=== PATIENT | female | born 1950 | race Caucasian/White ===

== ENCOUNTER 2016-10-15 11:27 | Inpatient (IN) | payer OTHER ==
[~2016-10-15] VITALS: Ht 165.1 cm; Wt 86.2 kg
[~2016-10-15 11:27] MED LIST: BACTO TP; BEN50 PO; EMTR1TAB12 PO; METF500T2 PO; SULF1TAB12 PO; [UNRECOGNIZED DRUG - CODE] PO; [UNRECOGNIZED DRUG - CODE] TP
[2016-10-15 11:35] VITALS: BP 152/87
[2016-10-15 12:03] LABS: BASOPHILS # (AUTO) 0.2 K/uL (0.00-0.22); BASOPHILS % (AUTO) 4.6 % (0.0-2.0); EOSINOPHILS # (AUTO) 0.1 K/uL (0-0.4); EOSINOPHILS % (AUTO) 2.9 % (0.0-4.0); HEMATOCRIT 40.4 % (36-48); HEMOGLOBIN 13.6 g/dL (12.0-16.0); LYMPHOCYTES # (AUTO) 2.2 K/uL (2.5-16.5); MEAN CORPUSCULAR HEMOGLOBIN 32 pg (27-31); MEAN CORPUSCULAR HGB CONC 34 g/dL (33-37); MEAN CORPUSCULAR VOLUME 93 fL (80-94); MONOCYTES # (AUTO) 0.2 K/uL (0.8-1.0); MONOCYTES % (AUTO) 4.9 % (1.7-9.3); NEUTROPHILS # (AUTO) 1.7 K/uL (1.8-7.7); NEUTROPHILS % (AUTO) 38.6 % (42.2-75.2); PLATELET COUNT (AUTO) 223 K/uL (140-450); RED BLOOD CELL COUNT(AUTO) 4.33 MIL/uL (4.20-5.40); RED CELL DISTRIBUTION WIDTH 13.3 % (11.6-13.7); WHITE BLOOD COUNT (AUTO) 4.4 K/uL (4.8-10.8)
[2016-10-15 12:17] LABS: ALBUMIN 3.6 g/dL (3.4-5.0); ANION GAP 10.5 (8-16); CALCIUM 8.9 mg/dL (8.5-10.1); CARBON DIOXIDE 29.8 mmol/L (21-32); CREATININE 0.8 mg/dL (0.6-1.3); POTASSIUM 5.3 mmol/L (3.5-5.1); TOTAL BILIRUBIN 0.6 mg/dL (0.0-1.0); TOTAL PROTEIN, SERUM 7.8 g/dL (6.4-8.2)
[2016-10-15 12:19] LABS: PARTIAL THROMBOPLASTIN TIME 26.7 secs (22-35.6); PROTHROMBIN TIME 9.7 secs (10.8-13.4)
--- NOTE | 2016-10-15 12:54 | NUR ---
Patient ambulated to bed 3. RN evaluating patient at bedside.
--- NOTE | 2016-10-15 12:55 | NUR ---
66/F PRESENT TO ER c/O CHEST PAIN x YESTERDAY 1929. DENIES N/V/D; SKIN IS PINK/WARM/DRY; AAOX4 WITH EVEN AND STEADY GAIT; LUNGS CLEAR BL; HR EVEN AND REGULAR; PT DENIES ANY FEVER, SOB, OR COUGH AT THIS TIME; PATIENT STATES PAIN OF 4/10 AT THIS TIME; VSS; PATIENT POSITIONED FOR COMFORT; HOB ELEVATED; BEDRAILS UP X2; BED DOWN. ER MD MADE AWARE OF PT STATUS.
--- NOTE | 2016-10-15 13:35 | NUR ---
Dr. Kam evaluating patient at bedside.
[2016-10-15] MEDS ORDERED: MORPHINE SULFATE 4 MG/ML SYR IVP ONE (14:00)
[2016-10-15] MEDS ORDERED: EMTR1TAB12 PO (14:11)
[2016-10-15] MEDS ORDERED: CILO100T PO (14:12)
[2016-10-15] MEDS ORDERED: CLOB0.0525 TP (14:13)
[2016-10-15] MEDS ORDERED: MOMETASONE TOP (14:14)
[2016-10-15] MEDS ORDERED: MOME0.051 NS (14:14)
[2016-10-15] MEDS ORDERED: ACETAMINOPHEN 325 MG TAB PO PRN (14:15)
[2016-10-15] MEDS ORDERED: [UNRECOGNIZED DRUG - CODE] PO (14:15)
[2016-10-15] MEDS ORDERED: ONDANSETRON 4 MG/2 ML VIAL IVP PRN (14:15)
[2016-10-15] MEDS ORDERED: HYDROcodone/APAP 5/325 MG 1 TAB TAB PO PRN (14:15)
[2016-10-15] MEDS ORDERED: VIT B6 PO (14:16)
[2016-10-15] MEDS ORDERED: METF750T PO (14:17)
[2016-10-15] MEDS ORDERED: ASPI81EC97 PO (14:17)
--- NOTE | 2016-10-15 14:20 | NUR ---
DR MORALES AWARE OF PT REFUSED MORPHINE, NOTIFIED OF POTASIUM AND BS
--- NOTE | 2016-10-15 14:27 | NUR ---
Patient will be admitted to care of DR GRAHAM. Admited to TELE. Will go to room 102A. Belongings list completed. Report to VIRY OCONNOR.
[2016-10-15 14:50] VITALS: BP 124/68
--- NOTE | 2016-10-15 14:50 | NUR ---
PATIENT ADMITTED FROM ER WITH DX OF CHEST PAIN. PATIENT AWAKE, ALERT, ORIENTED AND AMBULATORY. PATIENT DENIES PAIN AT THIS TIME. NO S/S OF DISTRESS NOTED. PATIENT BREATHING ON ROOM AIR. IV LINE NOTED TO THE RIGHT HAND. PATIENT PLACED ON TELE MONITORING. BED LOWERED WITH CALL LIGHT WITHIN REACH. WILL CONTINUE TO MONITOR
[2016-10-15 15:41] LABS: FREE T4 (FREE THYROXINE) 1.02 ng/dL (0.76-1.46); MAGNESIUM 1.9 mg/dL (1.8-2.4); PHOSPHORUS 3.9 mg/dL (2.5-4.9); THYROID STIMULATING HORMONE 1.29 uIU/mL (0.34-3.76)
[2016-10-15] MEDS ORDERED: MORPHINE SULFATE 2 MG/ML SYR IVP PRN (16:00)
--- NOTE | 2016-10-15 16:35 | NUR ---
PATIENT ASLEEP IN BED. NO S/S OF DISTRESS NOTED
[2016-10-15] MEDS: NACL 0.9% 1,000 ML IV SCH (17:28)
--- NOTE | 2016-10-15 19:15 | NUR ---
RECEIVED REPORT FROM VIRY LINRAES AT BEDSIDE. INITIAL ASSESSMENT COMPLETED. PT AAOX4. PT AMBULATES. PT SITTING ON CHAIR. PT DENIES PAIN OR DISCOMFORT. PT'S SKIN IS INTACT. PT HAS IV ON RIGHT HAND 22 G; ASYMPTOMATIC, PATENT AND INTACT INFUSING FLUIDS WELL. ORIENTED PT TO ROOM AND SURROUNDINGS AND USE OF CALL LIGHT. EXPLAINED PLAN OF CARE AND SHE VERBALIZES UNDERSTANDING. CALL LIGHT WITHIN REACH.
--- NOTE | 2016-10-15 19:33 | NUR ---
PATIENT REPORT GIVEN AT BEDSIDE. PATIENT ENDORSED IN STABLE CONDITION
[2016-10-15 20:00] VITALS: BP 101/56
[2016-10-15] MEDS ORDERED: CLOBETASOL PROPIONATE 0.05% TP SCH (20:35)
[2016-10-15] MEDS ORDERED: DEXTROSE 50% 50 ML SYR IVP PRN (20:35)
[2016-10-15] MEDS: BLOOD GLUCOSE MONITORING 1 DEV DEV FS SCH (21:00)
[2016-10-15] MEDS: KALETRA PO SCH (21:00)
[2016-10-15] MEDS ORDERED: LOPINAVIR PO SCH (21:00)
[2016-10-15] MEDS: METOPROLOL 25 MG TAB PO SCH (21:00)
[2016-10-15] MEDS ORDERED: SIMVASTATIN 10 MG TAB PO SCH (21:00)
[2016-10-15] MEDS ORDERED: diphenhydrAMINE 50 MG CAP PO SCH (21:00)
[2016-10-15] MEDS ORDERED: RITONAVIR PO SCH (21:00)
[2016-10-15] MEDS: CILOSTAZOL 100 MG TAB PO SCH (21:01)
--- NOTE | 2016-10-15 21:17 | NUR ---
PT TOLERATED 2100 MEDS WELL. MEDICATIONS GIVEN BY STUDENTS ACCOMPANIED BY THE INSTRUCTOR. LOPRESSOR NOT GIVEN DUE TO LOW BLOOD PRESSURE.
--- NOTE | 2016-10-15 21:20 | NUR ---
URINE COLLECTED AND SENT TO LAB.
[2016-10-15 21:46] LABS: BILIRUBIN,URINE NEGATIVE (NEGATIVE); BLOOD, URINE NEGATIVE (NEGATIVE); COLOR,URINE YELLOW (YELLOW); LEUKOCYTE ESTERASE ,URINE TRACE (NEGATIVE); NITRITE, URINE NEGATIVE (NEGATIVE); PROTEIN,URINE NEGATIVE (NEGATIVE); UGLUCOSE NEGATIVE (NEGATIVE); UROBILINOGEN,URINE 0.2 EU/dL (0.2 - 1)
[2016-10-15 21:53] LABS: APPEARANCE,URINE HAZY (CLEAR)
[2016-10-15 21:54] LABS: AMPHETAMINE, URINE NEG. ng/ml (NEG <=1000); BARBITURATE, URINE NEG. ng/ml (NEG <=200); BENZODIAZEPINE, URINE NEG. ng/mL (NEG <=200); CANNABINOID, URINE NEG. ng/mL (NEG <=50); COCAINE, URINE NEG. ng/mL (NEG <=300); OPIATE, URINE NEG. ng/mL (NEG <=2000); PHENCYCLIDINE SCREEN,URINE NEG. ng/mL (NEG <=25)
--- NOTE | 2016-10-15 22:10 | NUR ---
PT HAS BLOOD SUGAR MONITORING; HOWEVER THERE IS NO BLOOD GLUCOSE SLIDING SCALE. DR. DANIELS AWARE, HE STATED THAT HE WOULD PUT ORDERS, WILL FOLLOW UP.
--- NOTE | 2016-10-15 22:30 | NUR ---
PT STATED THAT SHE IS HUNGRY. PT REQUESTING SNACKS. SNACKS GIVEN. ALL NEEDS MET AT THIS TIME. CALL LIGHT WITHIN REACH.
[2016-10-15] MEDS: INSULIN LISPRO SLIDING SCALE 100 UNITS/ML VIAL SUBQ PRN (23:08)
[2016-10-16] VITALS: BP 112/63
--- NOTE | 2016-10-16 00:25 | NUR ---
PT AMBULATED TO THE RESTROOM. PT BACK IN BED NOW. WILL CONTINUE TO MONITOR PT.
--- NOTE | 2016-10-16 02:48 | NUR ---
PT REQUESTED TO HAVE IV DISCONNECTED TO AMBULATE TO THE RESTROOM. PT ALSO REQUESTED TO HAVE A CLEAN GOWN. PT RESTING IN BED; IV RECONNECTED. WILL CONTINUE TO MONITOR PT.
[2016-10-16 04:00] VITALS: BP 123/65
--- NOTE | 2016-10-16 04:05 | NUR ---
PT STATED THAT SHE FELT HOT. I TOOK HER TEMPERATURE AND IT WAS 98.3 REMOVED BLANKETS AND PT STATES THAT SHE FEELS BETTER NOW. WILL CONTINUE TO MONITOR PT.
--- NOTE | 2016-10-16 05:50 | NUR ---
DRY CLIPPER TENDER AT BEDSIDE. CALL LIGHT WITHIN REACH.
[2016-10-16 06:43] LABS: HEMATOCRIT 38.4 % (36-48); HEMOGLOBIN 13.1 g/dL (12.0-16.0); MEAN CORPUSCULAR HEMOGLOBIN 32 pg (27-31); MEAN CORPUSCULAR HGB CONC 34 g/dL (33-37); MEAN CORPUSCULAR VOLUME 95 fL (80-94); PLATELET COUNT (AUTO) 212 K/uL (140-450); RED BLOOD CELL COUNT(AUTO) 4.06 MIL/uL (4.20-5.40); RED CELL DISTRIBUTION WIDTH 13.5 % (11.6-13.7)
--- NOTE | 2016-10-16 07:10 | NUR ---
PATIENT REPORT RECEIVED AT BEDSIDE. PATIENT ASLEEP BUT AROUSABLE. NO S/S OF DISTRESS NOTED. PT ON TELE MONITORING. BED LOWERED WITH CALL LIGHT WITHIN REACH. WILL CONTINUE TO MONITOR
--- NOTE | 2016-10-16 07:10 | NUR ---
ENDORSED PLAN OF CARE TO DAY SHIFT NURSE. PT IN STABLE CONDITION.
[2016-10-16] MEDS: BLOOD GLUCOSE MONITORING 1 DEV DEV FS SCH ×2 (07:30→11:30)
--- NOTE | 2016-10-16 07:40 | NUR ---
PATIENT HAS BEEN SCREENED AND CATEGORIZED MODERATE NUTRITION RISK. PATIENT WILL BE SEEN WITHIN 3-5 DAYS OF ADMISSION. 10/18/16-10/20/[address]
[2016-10-16 07:45] LABS: ANION GAP 11.4 (8-16); CALCIUM 8.4 mg/dL (8.5-10.1); CARBON DIOXIDE 28.2 mmol/L (21-32); CREATININE 0.7 mg/dL (0.6-1.3); POTASSIUM 4.6 mmol/L (3.5-5.1)
[2016-10-16 07:56] LABS: CHOL/HDL RATIO 3.4 (1-4.5); MAGNESIUM 1.8 mg/dL (1.8-2.4); PHOSPHORUS 4.2 mg/dL (2.5-4.9)
[2016-10-16 08:00] VITALS: BP 116/62
[2016-10-16 08:45] LABS: BAND % (MANUAL) 60 % (0-8); LYMPHOCYTES % (MANUAL) 7 % (20-46); NEUTROPHILS % (MANUAL) 31 (43-65)
[2016-10-16 08:46] LABS: EOSINOPHILS % (MANUAL) 2 % (0-4)
[2016-10-16] MEDS ORDERED: PYRIDOXINE 25 MG PO SCH (09:00)
[2016-10-16] MEDS ORDERED: LISINOPRIL 5 MG TAB PO SCH (09:00)
[2016-10-16] MEDS ORDERED: TRUVADA PO SCH (09:00)
[2016-10-16] MEDS ORDERED: PYRIDOXINE 50 MG TAB PO SCH (09:00)
[2016-10-16] MEDS ORDERED: ECOTRIN 81 MG TABEC PO SCH (09:00)
[2016-10-16] MEDS ORDERED: EMTRICITABINE/TENOFOVIR 200-300MG 1 TAB PO SCH (09:00)
[2016-10-16] MEDS: CILOSTAZOL 100 MG TAB PO SCH (09:49)
[2016-10-16] MEDS: KALETRA PO SCH (09:50)
[2016-10-16] MEDS: METOPROLOL 25 MG TAB PO SCH (09:51)
[2016-10-16] MEDS: NACL 0.9% 1,000 ML IV SCH (10:15)
[2016-10-16 12:00] VITALS: BP 98/50
[2016-10-16] MEDS: INSULIN LISPRO SLIDING SCALE 100 UNITS/ML VIAL SUBQ PRN (12:46)
--- NOTE | 2016-10-16 13:42 | NUR ---
PATIENT WANTED TO SMOKE OUTSIDE BUT WAS NOT CLEARED BY DR CHIU. PATIENT OPTED TO SIGN AMA. IV LINE DISCONTINUED
--- NOTE | 2016-10-16 14:42 | NUR ---
P.T. NOTES RECEIVED P.T. EVAL ORDER; Pt DECLINED TO PARTICIPATE W/P.T., STATES SHE FEELS TIRED, EXPLAINED BENEFITS OF THERAPY, Pt STILL DECLINED, CALL LIGHT, PHONE, TABLE IN REACH; APPRECIATIVE; FOLLOW UP TOMORROW; STATES SHE LIVES AT HOME ALONE, HAS 3 CAREGIVERS, AMBULATORY W/ FWW. PUMA
--- NOTE | 2016-10-16 16:17 | NUR ---
CALLED ANDRESSA, PATIENT'S AUTOMATION QA ANALYST AND INFORMED HIM THAT PATIENT FORGOT HER HOME MEDICATIONS IN THE HOSPITAL. ANDRESSA TO RIM TECHNICIAN PATIENT'S MEDICATIONS TODAY
== END 2016-10-16 13:42 | disposition left against medical advice (07) | DRG 205 ==
LOC: MED 11:27 → MTU 14:15
PROVIDERS: ADMIT Family Medicine; ATTEND Family Medicine
DX: M94.0 Chondrocostal junction syndrome [Tietze] (principal); N17.0 Acute kidney failure with tubular necrosis; D68.59 Other primary thrombophilia; N39.0 Urinary tract infection, site not specified; E87.5 Hyperkalemia; F17.200 Nicotine dependence, unspecified, uncomplicated; I87.2 Venous insufficiency (chronic) (peripheral); E11.649 Type 2 diabetes mellitus with hypoglycemia without coma; Z96.653 Presence of artificial knee joint, bilateral; E11.51 Type 2 diabetes mellitus with diabetic peripheral angiopathy without gangrene; Z60.2 Problems related to living alone; L53.9 Erythematous condition, unspecified; I70.209 Unspecified atherosclerosis of native arteries of extremities, unspecified extremity; I25.10 Atherosclerotic heart disease of native coronary artery without angina pectoris; Z86.718 Personal history of other venous thrombosis and embolism; Z79.899 Other long term (current) drug therapy; Z88.1 Allergy status to other antibiotic agents; Z88.8 Allergy status to other drugs, medicaments and biological substances; Z86.73 Personal history of transient ischemic attack (TIA), and cerebral infarction without residual deficits; I25.2 Old myocardial infarction; Z80.1 Family history of malignant neoplasm of trachea, bronchus and lung; Z80.49 Family history of malignant neoplasm of other genital organs; Z89.421 Acquired absence of other right toe(s); Z90.710 Acquired absence of both cervix and uterus; Z53.21 Procedure and treatment not carried out due to patient leaving prior to being seen by health care provider; E11.620 Type 2 diabetes mellitus with diabetic dermatitis
CPT/HCPCS: 36415; 71020; 80048; 80053; 80305; 81001; 82150; 82948; 83036; 83690; 83735; 83880; 84100; 84439; 84443; 84484; 85025; 85610; 85730; 87081; 93005; 93925; 93970; 99285; J0696; J2270; J7030; J7060; Q0092; Q0163

== ENCOUNTER 2017-01-05 18:13 | Emergency (ER) | payer OTHER ==
[~2017-01-05] VITALS: Ht 165.1 cm; Wt 89.6 kg
[~2017-01-05 18:13] MED LIST changes: +ASPI81EC97 PO; +CILO100T PO; +CLOB0.0525 TP; +METF750T PO; +MOME0.051 NS; +MOMETASONE TOP; +VIT B6 PO
[2017-01-05 18:17] VITALS: BP 127/78
--- NOTE | 2017-01-05 18:27 | NUR ---
Patient ambulated to bed 4. RN evaluating patient at bedside.
--- NOTE | 2017-01-05 18:28 | NUR ---
Note undone in EDM - 01/05/17 at 1906 by [id number] 66F BIB SELF C/O "A POWDER COMING OUT OF MY RIGHT FOOT" X 1 YEAR AND INTERMITTENT DIZZINESS X 2-3 MONTHS. HX: BLEEDING IN THE BRAIN, BLEEDING IN THE LUNGS, DM, HIV, ARTHRITIS, CO'S (3) DENIES N/V/D; AAOX4 WITH EVEN AND STEADY GAIT; LUNGS CLEAR BL; HR EVEN AND REGULAR; PT DENIES ANY FEVER, CP, SOB, OR COUGH AT THIS TIME; PATIENT STATES PAIN OF 0/10 AT THIS TIME; VSS; PATIENT POSITIONED FOR COMFORT; HOB ELEVATED; BEDRAILS UP X2; BED DOWN. ER MD MADE AWARE OF PT STATUS.
--- NOTE | 2017-01-05 18:28 | NUR ---
66F BIB SELF C/O "A POWDER COMING OUT OF MY RIGHT FOOT" X 1 YEAR AND INTERMITTENT DIZZINESS X 2-3 MONTHS. HX: BLEEDING IN THE BRAIN, BLEEDING IN THE LUNGS, DM, HIV, ARTHRITIS, NY'S (3) DENIES N/V/D; AAOX4 WITH EVEN AND UNSTEADY GAIT; LUNGS CLEAR BL; HR EVEN AND REGULAR; PT DENIES ANY FEVER, CP, SOB, OR COUGH AT THIS TIME; PATIENT STATES PAIN OF 0/10 AT THIS TIME; VSS; PATIENT POSITIONED FOR COMFORT; HOB ELEVATED; BEDRAILS UP X2; BED DOWN. ER MD MADE AWARE OF PT STATUS.
--- NOTE | 2017-01-05 18:34 | NUR ---
Dr. Landers evaluating patient at bedside.
--- NOTE | 2017-01-05 18:45 | NUR ---
LAB AT BEDSIDE
[2017-01-05 19:00] LABS: HEMATOCRIT 41.8 % (36-48); HEMOGLOBIN 14.1 g/dL (12.0-16.0); MEAN CORPUSCULAR HEMOGLOBIN 32 pg (27-31); MEAN CORPUSCULAR HGB CONC 34 g/dL (33-37); MEAN CORPUSCULAR VOLUME 95 fL (80-94); PLATELET COUNT (AUTO) 265 K/uL (140-450); RED BLOOD CELL COUNT(AUTO) 4.39 MIL/uL (4.20-5.40); RED CELL DISTRIBUTION WIDTH 12.5 % (11.6-13.7); WHITE BLOOD COUNT (AUTO) 5.2 K/uL (4.8-10.8)
[2017-01-05 19:12] LABS: ANION GAP 9.1 (8-16); CARBON DIOXIDE 26.7 mmol/L (21-32); CREATININE 0.9 mg/dL (0.6-1.3); POTASSIUM 3.8 mmol/L (3.5-5.1)
--- NOTE | 2017-01-05 19:17 | NUR ---
pt resting in bed, no s/s of distress noted at the moment. pt awating for results.
[2017-01-05 19:23] LABS: EOSINOPHILS % (MANUAL) 1 % (0-4); LYMPHOCYTES % (MANUAL) 55 % (20-46); MONOCYTES % (MANUAL) 7 % (5-12)
[2017-01-05 19:26] LABS: ALBUMIN 3.6 g/dL (3.4-5.0); THYROID STIMULATING HORMONE 0.98 uIU/mL (0.34-3.74); TOTAL BILIRUBIN 0.7 mg/dL (0.0-1.0)
--- NOTE | 2017-01-05 19:43 | NUR ---
Dr. Wang evaluating patient at bedside.
[2017-01-05 20:08] VITALS: BP 145/78
--- NOTE | 2017-01-05 20:08 | NUR ---
Patient discharged with v/s stable. Written and verbal after care instructions given and explained. Patient alert, oriented and verbalized understanding of instructions. Ambulatory with steady gait. All questions addressed prior to discharge. ID band removed. Patient advised to follow up with PMD OR RETURN TO ER IF CONDITION WORSENS. Rx of CLOTRIMAZOLE given. Patient educated on indication of medication including possible reaction and side effects. Opportunity to ask questions provided and answered.
[2017-01-05 21:12] LABS: APPEARANCE,URINE CLEAR (CLEAR); BILIRUBIN,URINE NEGATIVE (NEGATIVE); BLOOD, URINE NEGATIVE (NEGATIVE); COLOR,URINE YELLOW (YELLOW); LEUKOCYTE ESTERASE ,URINE NEGATIVE (NEGATIVE); NITRITE, URINE NEGATIVE (NEGATIVE); UGLUCOSE NEGATIVE (NEGATIVE)
[2017-01-05 21:16] LABS: BARBITURATE, URINE NEG. ng/ml (NEG <=200); BENZODIAZEPINE, URINE NEG. ng/mL (NEG <=200); CANNABINOID, URINE NEG. ng/mL (NEG <=50); COCAINE, URINE NEG. ng/mL (NEG <=300); OPIATE, URINE NEG. ng/mL (NEG <=2000); PHENCYCLIDINE SCREEN,URINE NEG. ng/mL (NEG <=25)
== END 2017-01-05 20:08 | disposition home or self-care (01) ==
LOC: MED 18:13
DX: R42 Dizziness and giddiness (principal); L30.8 Other specified dermatitis; Z86.73 Personal history of transient ischemic attack (TIA), and cerebral infarction without residual deficits; E11.9 Type 2 diabetes mellitus without complications; I10 Essential (primary) hypertension; Z96.659 Presence of unspecified artificial knee joint; Z79.84 Long term (current) use of oral hypoglycemic drugs; Z79.899 Other long term (current) drug therapy; Z88.1 Allergy status to other antibiotic agents; Z88.8 Allergy status to other drugs, medicaments and biological substances
CPT/HCPCS: 36415; 80053; 80305; 81003; 81025; 82948; 84443; 85025; 93005; 99284; 99285

== ENCOUNTER 2017-01-13 08:53 | Emergency (ER) | payer OTHER ==
[~2017-01-13] VITALS: Ht 165.1 cm; Wt 89.1 kg
[2017-01-13 09:11] VITALS: BP 150/72
[2017-01-13] MEDS ORDERED: DIT5 PO (09:36)
[2017-01-13] MEDS ORDERED: PRAM0.5T4 PO (09:36)
[2017-01-13] MEDS ORDERED: SUCR1TAB35 PO (09:36)
[2017-01-13] MEDS ORDERED: GABA300C PO (09:36)
[2017-01-13] MEDS ORDERED: NITR0.4T24 SL (09:36)
[2017-01-13] MEDS ORDERED: CLOT1CRE82 TP (09:36)
[2017-01-13 10:53] VITALS: BP 141/80
== END 2017-01-13 10:52 | disposition home or self-care (01) ==
LOC: MED 08:53
DX: L30.9 Dermatitis, unspecified (principal); R42 Dizziness and giddiness; E11.9 Type 2 diabetes mellitus without complications; I10 Essential (primary) hypertension; Z86.73 Personal history of transient ischemic attack (TIA), and cerebral infarction without residual deficits; Z79.899 Other long term (current) drug therapy; Z88.1 Allergy status to other antibiotic agents; Z88.8 Allergy status to other drugs, medicaments and biological substances
CPT/HCPCS: 70450; 82948; 99284